=== PATIENT | female | born 1965 | race Caucasian/White ===

== ENCOUNTER 2021-05-30 14:17 | Emergency (ER) | payer OTHER, SELFPAY ==
--- NOTE | ~2021-05-30 | CT_ITS ---
EXAMINATION: CT abdomen pelvis w con INDICATION: Right flank and right lower quadrant pain TECHNIQUE: Computed tomographic images of the abdomen and pelvis were obtained after the administrati on of 100 cc of Omnipaque 350 intravenous contrast. The dose-length product (DLP) was 348.39 mGy-cm. Automated exposure control and iterative reconstruction technique were employed. COMPARISON: None available FINDINGS: Minimal dependent atelectasis is present in the lung bases. The heart size is normal. Punct ate calcifications in an otherwise normal spleen likely represent healed granulomatous disease. The l iver, pancreas, gallbladder, and adrenal glands are normal. There is a 6 mm cyst of the left kidney. The right kidney is unremarkable. There is calcified atherosclerosis of the aorta and many of the [facility] er arteries. No pathologically enlarged abdominal or pelvic lymph nodes are identified. There is no f ree intraperitoneal gas or evidence of bowel obstruction. The appendix is normal. There is a moderate volume of colonic stool. Bilateral tubal ligation clips are noted. There are bilateral L5 pars defec ts with chronic grade 1 anterolisthesis of L5 on S1. IMPRESSION: 1. No CT correlate for the patient's symptoms. Reviewed, dictated and finalized at location A.
[2021-05-30 14:20] VITALS: BP 145/92; PULSE 90; RESP 16; TEMP 36.1; O2SAT 100
[2021-05-30 14:52] LABS: Basophils Percent Auto 0.5 % (0.2-1.2); Eosinophils Absolute Auto 0.2 K/mm3 (0-0.3); Eosinophils Percent Auto 2.8 % (0-4.4); Hematocrit 39.8 % (37.0-47.0); Hemoglobin 13.2 g/dL (12.0-15.0); Immature Granulocyte Absolute 0.02 K/mm3 (0.00-0.031); Immature Granulocyte Percent A 0.2 % (0-0.5); Lymphocytes Absolute Auto 3.79 K/mm3 (0.9-3.2); Lymphocytes Percent Auto 45.3 % (18.3-44.2); Mean Corpuscular HGB Conc 33.2 g/dl (32-36); Mean Corpuscular Hemoglobin 32.1 pg (26-34); Mean Corpuscular Volume 96.8 fl (80-100); Mean Platelet Volume 9.1 fl (7.4-10.4); Monocytes Absolute Auto 0.7 K/mm3 (0.1-0.6); Monocytes Percent Auto 7.8 % (2.6-8.5); Neutrophils Absolute Auto 3.6 K/mm3 (1.3-6.7); Neutrophils Percent Auto 43.4 % (45.5-73.1); Platelet Count Result 357 k/mm3 (150-375); Red Blood Count 4.11 M/mm3 (4.2-5.4); Red Cell Distribution Width 13.2 % (11.5-14.5); White Blood Count 8.4 K/mm3 (4.5-10.0)
[2021-05-30 15:04] LABS: Alanine Aminotransferase 18 U/L (4-35); Albumin Level 5.4 g/dL (3.5-5.1); Alkaline Phosphatase 83 U/L (38-126); Anion Gap 12 mmol/L (8-16); Aspartate Amino Transferase 21 U/L (14-36); Bilirubin,Total 0.2 mg/dL (0.2-1.3); Blood Urea Nitrogen 13 mg/dL (7-17); Calcium 10.6 mg/dL (8.4-10.2); Carbon Dioxide 30 mmol/L (22-30); Chloride 100 mmol/L (98-107); Estimated CRCL calculation 52 ml/min; Estimated Glomerular Filt Rate 57; Glucose 115 mg/dL (65-110); Lipase 116 U/L (23-300); Potassium 5.3 mmol/L (3.4-5.0); Sodium 142 mmol/L (137-145)
[2021-05-30 15:13] LABS: Add Urine Microscopic? YES; Appearance Urine Cloudy (Clear); Bilirubin Urine Negative (Negative); Blood Urine 1+ (Negative); Color Urine Straw (Yellow); Glucose Urine UA Negative (Negative); Ketones Urine Negative (Negative); Leukocyte Esterase Ur 1+ LEU/UL (Negative); Nitrate Urine Negative (Negative); Protein Urine Negative (Negative); Squamous Epithelial Cell Urine Moderate /hpf (Few); Urobilinogen Urine Negative mg/dL (<2.0)
[2021-05-30 16:47] VITALS: BP 141/88; PULSE 93; RESP 20; O2SAT 99
--- NOTE | 2021-05-30 16:54 | ED.ABDPAIN ---
HPI - Abdominal Pain General Chief Complaint: Abdominal Pain Stated Complaint: rlq pain Time Seen by Provider: 05/30/21 16:47 Source: patient Mode of arrival: ambulatory Limitations: no limitations History of Present Illness HPI narrative: The patient is a 55 yo female with a history of HTN, HLD presenting for evaluation of right lower quadrant abdominal pain. Pain has been present worsening over the past 10 days. Pain located in the lower right side with radiation to the left flank. Pt with subjective fever and chills this morning. Denies nausea or vomiting. No recent injury. No recent heavy bending or lifting. No rashes. Patient denies any dysuria, hematuria or frequency. No history of recurrent urinary tract infections. No vaginal bleeding or pelvic pain. Patient states she has not had menstrual cycles for many years. No history of nephrolithiasis. No upper abdominal pain, chest pain, shortness of breath. Related Data Allergies Allergy/AdvReac Type Severity Reaction Status Date / Time No Known Allergies Allergy Mild Verified 05/30/21 16:48 egg Allergy Unknown unknown Verified 05/30/21 16:48 Review of Systems Review of Systems: CONSTITUTIONAL: Denies fever, chills, or sweats. EYES: Denies visual changes, redness, or discharge. ENT: Denies rhinorrhea, congestion, sore throat, or otalgia. CARDIOVASCULAR: Denies chest pain, palpitations, or edema. RESPIRATORY: Denies cough or dyspnea. GASTROINTESTINAL: Reports right lower quadrant abdominal pain without nausea, vomiting or diarrhea GENITOURINARY: Denies dysuria or hematuria. SKIN: Denies rash or itching. MUSCULOSKELETAL: reports right flank pain without other joint pain, or myalgia. NEUROLOGIC: Denies headache, numbness, or weakness. [facility]LY [facility] Past Medical History Medical History HLD (hyperlipidemia) Hyperglycemia Sciatica Vitamin D deficiency disease Family History Family History Father Family history of cardiovascular disease Mother Family history of malignant neoplasm of breast in first degree relative Social History Social History Smoking status: Heavy tobacco smoker Alcohol intake: never Exam Narrative: GENERAL: Awake, alert, conversant, mildly uncomfortable appearing HEAD: Normocephalic, atraumatic. EYES: PERRLA and EOMI. ENT: Nares clear, no rhinorrhea or epistaxis. Mucous membranes moist. NECK: Supple. CHEST: No respiratory distress, breathing even and non labored HEART: Regular rate, sinus rhythm ABDOMEN:Non distended, tender in the RLQ, left flank tenderness, non rigid, no rebound EXTREMITIES: Normal range of motion. No edema. SKIN: Warm, dry, no rash. NEURO:No focal deficits. Alert and oriented x3 Course Vital Signs Vital signs: Vital Signs Temperature 36.1 C L 05/30/21 14:20 Pulse Rate 90 05/30/21 14:20 Respiratory Rate 16 05/30/21 14:20 Blood Pressure 145/92 H 05/30/21 14:20 Pulse Oximetry 100 05/30/21 14:20 Temperature 36.1 C L 05/30/21 14:20 Pulse Rate 70 05/30/21 18:27 Respiratory Rate 18 05/30/21 18:27 Blood Pressure 120/55 L 05/30/21 18:27 Pulse Oximetry 100 05/30/21 18:27 MDM - Abdominal Pain MDM Narrative Medical decision making narrative: Patient presenting from primary care physician's office today for evaluation of possible appendicitis, renal colic based on symptoms. At the time of assessment, patient is mildly hypertensive, other vital signs are normal. ABCs are intact. IV access obtained and labs are drawn. Patient was given IV fluids, antiemetic, pain medication. Labs are reassuring. Urinalysis with hematuria, leukocyte esterase, white blood cells present. Patient does not have overt signs or symptoms of urinary tract infection, but I think that we should treat with antibiotic while awaiting culture. No ureteral stone bas
[2021-05-30] MEDS: ONDANSETRON INJ 4 MG/2 ML VIAL IV PUSH (17:23)
[2021-05-30] MEDS: MORPHINE SULFATE (*CRX) 4 MG/ML INJ IV PUSH (17:25)
[2021-05-30 17:32] VITALS: BP 137/83; PULSE 81; RESP 20; O2SAT 99
[2021-05-30 18:27] VITALS: BP 120/55; PULSE 70; RESP 18; O2SAT 100
[2021-05-30 19:20] VITALS: BP 150/74; PULSE 83; RESP 18; O2SAT 99
--- NOTE | 2021-05-30 19:20 | PC.NURSE ---
Assumed care of pt at this time. pt alert and upright on stretcher, family at bedside. Pt requesting pain medication, rates pain 5/10. EDP notified. Pt updated on POC.
[2021-05-30] MEDS: KETOROLAC 15 MG/ML VIAL (*BKC) IV PUSH (19:52)
== END 2021-05-30 20:26 | disposition home or self-care (01) ==
PROVIDERS: Emergency Provider Emergency Medicine; PCP Emergency Medicine
DX: N39.0 Urinary tract infection, site not specified (principal); R10.9 Unspecified abdominal pain; R31.9 Hematuria, unspecified; E78.5 Hyperlipidemia, unspecified
CPT/HCPCS: 36415; 74177; 80053; 81001; 83690; 85025; 96374; 96375; 99284; J1885; J2270; J2405; Q9967

== ENCOUNTER → 2021-08-24 10:04 | Outpatient (CLI) | payer OTHER, SELFPAY ==
[2021-08-25 23:19] LABS: SARS-CoV-2 RNA PCR Negative
== END ==
PROVIDERS: PCP Emergency Medicine; Visit Provider Emergency Medicine
DX: R05.9 Cough, unspecified (principal); R50.9 Fever, unspecified; R52 Pain, unspecified; Z20.822 Contact with and (suspected) exposure to COVID-19
CPT/HCPCS: C9803; U0003; U0005